=== PATIENT | male | born 1980 | race Caucasian/White ===

== ENCOUNTER 2017-04-11 10:01 | Emergency (ER) | payer MEDICAID, OTHER ==
[~2017-04-11] VITALS: Ht 180.3 cm; Wt 90.7 kg
[2017-04-11 10:26] VITALS: BP 121/86
--- NOTE | 2017-04-11 10:26 | NUR ---
BB SELF: NAUSEA AFTER DRINKING 3 BEERS YESTERDAY VOMITING X1
[2017-04-11] MEDS ORDERED: KETOROLAC TROMETHAMINE 15 MG/ML VIAL ONE (10:42)
[2017-04-11] MEDS ORDERED: ONDANSETRON 4 MG TAB.RAPDIS ONE (10:42)
[2017-04-11] MEDS ORDERED: ONDANSETRON 4 MG TAB.RAPDIS SL ONE (11:00)
[2017-04-11] MEDS ORDERED: KETOROLAC TROMETHAMINE INJ 60 MG/2 ML VIAL IM ONE (11:00)
== END 2017-04-11 11:56 | disposition home or self-care (01) ==
LOC: ER 10:03
DX: R51 Headache (principal); R11.0 Nausea; F10.10 Alcohol abuse, uncomplicated; Z98.890 Other specified postprocedural states
CPT/HCPCS: 96372; 99283; A4606 ×2; J1885; Q0162; Z7610

== ENCOUNTER 2017-06-12 05:09 | Emergency (ER) | payer OTHER ==
[~2017-06-12] VITALS: Ht 180.3 cm; Wt 90.7 kg
[2017-06-12] MEDS ORDERED: IBUPROFEN 400 MG TABLET ONE (05:29)
[2017-06-12] MEDS ORDERED: ACETAMINOPHEN ES 500 MG TABLET ONE (05:29)
[2017-06-12] MEDS ORDERED: IBUPROFEN 400 MG TABLET PO ONE (05:30)
[2017-06-12] MEDS ORDERED: ACETAMINOPHEN 325 MG TABLET PO ONE (05:30)
--- NOTE | 2017-06-12 07:00 | NUR ---
PT HAD 103.1 F ORAL TEMP IN TRIAGE. PT REC'D MEDICATION
--- NOTE | 2017-06-12 07:00 | NUR ---
PT PRESENTED TO THE ER WITH A C/O COUGH WITH CONGESTION AND SORE THROAT X 1 WK. PT WENT TO BED #7.
--- NOTE | 2017-06-12 07:25 | NUR ---
REPORT GIVEN TO FRANKIE ROSE FOR [facility].
[2017-06-12 07:54] VITALS: BP 130/65
== END 2017-06-12 08:33 | disposition home or self-care (01) ==
LOC: ER 05:16
DX: J02.9 Acute pharyngitis, unspecified (principal); F17.200 Nicotine dependence, unspecified, uncomplicated; M79.1 Myalgia
CPT/HCPCS: 99283; A4606 ×2; Z7610 ×2

== ENCOUNTER 2019-01-29 13:13 | Emergency (ER) | payer OTHER ==
[~2019-01-29] VITALS: Ht 165.1 cm; Wt 59.9 kg
[2019-01-29 13:45] LABS: BASOPHILS # (AUTO) 0.1 /CMM (0.0-0.2); BASOPHILS % (AUTO) 0.6 % (0.0-2.0); HEMATOCRIT 51 % (39-51); HEMOGLOBIN 17.6 g/dL (13.5-17.5); MEAN CORPUSCULAR HGB CONC 35 g/dl (31.0-36.0); MEAN CORPUSCULAR VOLUME 89 fL (80-96); MONOCYTES # (AUTO) 0.7 /CMM (0.1-1.30); NEUTROPHILS # (AUTO) 7.1 /CMM (1.8-8.9); NEUTROPHILS % (AUTO) 71.4 % (43.0-81.0); PLATELET COUNT (AUTO) 286 /CMM (150-450); RED BLOOD CELL COUNT(AUTO) 5.74 MIL/uL (4.5-6.0); WHITE BLOOD COUNT (AUTO) 9.9 K/uL (4.3-11.0)
[2019-01-29] MEDS ORDERED: NORT10CA PO (13:46)
[2019-01-29] MEDS ORDERED: MELO-107 PO (13:46)
[2019-01-29] MEDS ORDERED: IV NS 0.9% 1,000 ML BAG IV ONE (14:00)
[2019-01-29 14:09] LABS: ALANINE AMINOTRANSFERASE 40 U/L (12-78); ALBUMIN 4.5 g/dL (3.4-5.0); ALKALINE PHOSPHATASE 86 U/L (46-116); ASPARTATE AMINOTRANSFERASE 15 U/L (15-37); BILIRUBIN,DIRECT 0.2 mg/dL (0.0-0.2); BILIRUBIN,TOTAL 1.3 mg/dL (0.2-1.0); CALCIUM, SERUM 9.3 mg/dL (8.5-10.1); CARBON DIOXIDE 28 mmol/L (21-32); CHLORIDE 105 mmol/L (98-107); CREATININE 1.1 mg/dL (0.6-1.3); GLUCOSE 90 mg/dL (74-106); POTASSIUM 3.6 mmol/L (3.5-5.1); SODIUM SERUM 144 mmol/L (136-145); UREA NITROGEN, BLOOD 9 mg/dL (7-18)
[2019-01-29 14:28] LABS: ALCOHOL, BLOOD < 3 mg/dL (0-0)
--- NOTE | 2019-01-29 17:09 | NUR ---
Updated by MONIKA Albert pt now admits to being depressed and suicidal. Needs psych evaluation
--- NOTE | 2019-01-29 17:54 | NUR ---
NO acute changes. VSS NO seizure activity noted during course of ER stay. Status quo - Tract PET here to evaluate patient updated with plan of care. Dinner served. Ate 100%
[2019-01-29 17:57] LABS: APPEARANCE,URINE Clear (CLEAR); BILIRUBIN,URINE Negative (NEGATIVE); BLOOD, URINE Negative Ery/uL (NEGATIVE); COLOR,URINE Yellow (YELLOW); KETONES,URINE Trace (NEGATIVE); LEUKOCYTE ESTERASE ,URINE Negative (NEGATIVE); NITRITE, URINE Negative (NEGATIVE); PROTEIN,URINE Negative (NEGATIVE); UGLUCOSE Negative (NEGATIVE); UROBILINOGEN,URINE 0.2 EU/dL (0.2)
[2019-01-29 18:05] LABS: BACTERIA,URINE None seen /HPF (None Seen); RBC,URINE 0-2 /HPF (0-2); SQUAMOUS EPITHELIAL CELL,UR Few /HPF (None Seen); WBC,URINE 0-2 /HPF (0-3)
[2019-01-29 18:55] VITALS: BP 154/84
== END 2019-01-29 18:59 | disposition home or self-care (01) ==
LOC: ER 13:13
DX: R56.9 Unspecified convulsions (principal); R45.851 Suicidal ideations; F17.200 Nicotine dependence, unspecified, uncomplicated; F12.10 Cannabis abuse, uncomplicated; R51 Headache
CPT/HCPCS: 36415; 70450; 80048; 80076; 80305; 80307; 81001; 82962; 85025; 93005; 99284; J7030; 81000-TC; G0480

== ENCOUNTER 2020-07-09 14:49 | Emergency (ER) | payer OTHER ==
[~2020-07-09] VITALS: Ht 180.3 cm; Wt 101.2 kg
[~2020-07-09 14:49] MED LIST: MELO-107 PO; NORT10CA PO
--- NOTE | 2020-07-09 15:35 | NUR ---
bib self c/o chest pain. states its been 2 months but worse in the last 4days. vs checked. stable. iv access started on l ac g18. blood draw done sent to lab. seen by
[2020-07-09 15:48] LABS: BASOPHILS % (AUTO) 0.4 % (0.0-2.0); EOSINOPHILS % (AUTO) 1.7 % (0.0-6.0); HEMATOCRIT 51 % (39-51); HEMOGLOBIN 17.4 g/dL (13.5-17.5); LYMPHOCYTES # (AUTO) 1.9 /CMM (0.8-4.8); MEAN CORPUSCULAR HGB CONC 34 g/dl (31.0-36.0); MEAN CORPUSCULAR VOLUME 91 fL (80-96); MONOCYTES # (AUTO) 0.7 /CMM (0.1-1.30); MONOCYTES % (AUTO) 6.9 % (2.0-12.0); NEUTROPHILS # (AUTO) 7.8 /CMM (1.8-8.9); PLATELET COUNT (AUTO) 357 /CMM (150-450); RED BLOOD CELL COUNT(AUTO) 5.64 MIL/uL (4.5-6.0); WHITE BLOOD COUNT (AUTO) 10.7 K/uL (4.3-11.0)
[2020-07-09 16:03] LABS: CALCIUM, SERUM 9.5 mg/dL (8.5-10.1); CARBON DIOXIDE 28 mmol/L (21-32); CHLORIDE 103 mmol/L (98-107); CREATININE 1.1 mg/dL (0.6-1.3); GLUCOSE 92 mg/dL (74-106); POTASSIUM 4.5 mmol/L (3.5-5.1); SODIUM SERUM 142 mmol/L (136-145); UREA NITROGEN, BLOOD 12 mg/dL (7-18)
[2020-07-09] MEDS ORDERED: GUAI-671 PO (17:10)
[2020-07-09] MEDS ORDERED: AZIT250T PO (17:10)
[2020-07-09 17:25] VITALS: BP 136/88
== END 2020-07-09 17:25 | disposition home or self-care (01) ==
LOC: ER 14:52
DX: U07.1 COVID-19 (principal); R07.89 Other chest pain; R00.2 Palpitations; G89.29 Other chronic pain; M54.9 Dorsalgia, unspecified; F17.200 Nicotine dependence, unspecified, uncomplicated; Z79.899 Other long term (current) drug therapy
CPT/HCPCS: 36415; 71045-TC; 80048-TC; 84484-TC; 85025-TC